=== PATIENT | male | born 1945 | race Caucasian/White ===

== ENCOUNTER → 2016-12-16 | Outpatient (CLI) | payer MEDICARE, BC ==
[~2016-12-16] MED LIST: AMBIEN 10MG10 MG PO; AMITRIPTYLINE H25 M1 PO; ASPIRIN 81M81 MG/TA2 PO; ASPIRIN E.C. 8181 MG PO; BETAPACE 80MG80 MG PO; BETAPACE AF160 MG PO; COLACE 100100 MG/CAP PO; COUMADIN 5MG5 MG/TAB PO; DOXYCYCLINE 10100 MG PO; ELAVIL100 MG PO; ELIQUIS 5MG PO; FERROUS SU325 MG/TAB PO; FOLIC ACID0.4 MG PO; GLUCOPHAGE1000 MG PO; LIPITOR 40MG TA40 MG PO; MYRBETR50MG PO; NORCO 325 MG-7.1 TAB PO; PAXIL 10MG10 MG PO; PAXIL 30MG30 MG PO; PREDNISONE20 MG PO; PRINIVIL10 MG PO; TRILIPIX45 MG PO; VITAMIN C500 MG PO; VITAMIN D 1001000 IU PO; ZESTRIL 5MG5 MG PO; ZOCOR 10MG10 MG PO
[2016-12-16 17:05] LABS: HIV 1/2 Antibodies Non-Reactive; HIV-1p24 Antigen Non-Reactive
== END ==
LOC: COL.LAB 15:33
PROVIDERS: Orthopaedic Surgery
DX: Z96.641 Presence of right artificial hip joint (principal)

== ENCOUNTER 2016-12-22 08:50 | Inpatient (IN) | payer MEDICARE, BC ==
[~2016-12-22] VITALS: Ht 180.3 cm; Wt 88.1 kg
[~2016-12-22 08:50] MED LIST changes: -ASPIRIN 81M81 MG/TA2 PO; -COUMADIN 5MG5 MG/TAB PO; -FERROUS SU325 MG/TAB PO; -FOLIC ACID0.4 MG PO; -LIPITOR 40MG TA40 MG PO; -VITAMIN C500 MG PO; -VITAMIN D 1001000 IU PO
[2016-12-22] MEDS ORDERED: ASPIRIN 81M81 MG/TA2 PO (10:59)
[2016-12-22] MEDS ORDERED: LIPITOR 40MG TA40 MG PO (10:59)
[2016-12-22] MEDS ORDERED: FOLIC ACID0.4 MG PO (11:00)
[2016-12-22] MEDS ORDERED: FERROUS SU325 MG/TAB PO (11:00)
[2016-12-22] MEDS ORDERED: VITAMIN D 1001000 IU PO (11:01)
[2016-12-22] MEDS ORDERED: ZESTRIL 5MG5 MG PO (11:01)
[2016-12-22] MEDS ORDERED: VITAMIN C500 MG PO (11:01)
[2016-12-22] MEDS ORDERED: COUMADIN 5MG5 MG/TAB PO (11:02)
[2016-12-23] VITALS (12 sets, daily range): BP systolic 121–147; BP diastolic 56–86; PULSE 46–79; TEMP 97.5–98.7
[2016-12-23 06:27] LABS: PROTHROMBIN TIME 11.5 SECONDS (9.7-12.8)
[2016-12-23] MEDS ORDERED: BETAPACE 80MG80 MG PO (16:35)
[2016-12-24 04:18] VITALS: BP 117/68; PULSE 71; TEMP 97.8
[2016-12-24 07:27] VITALS: BP 116/67; PULSE 64; TEMP 98.7
[2016-12-24 07:59] LABS: INR 1.1 (0.8-3.0); PROTHROMBIN TIME 12.1 SECONDS (9.7-12.8)
[2016-12-24 08:05] LABS: HEMATOCRIT 31.7 % (42.0-52.0); HEMOGLOBIN 10.3 g/dl (13.5-18.0)
[2016-12-24 11:21] VITALS: BP 98/43; PULSE 40; TEMP 99.1
[2016-12-24 16:43] VITALS: BP 111/54; PULSE 76; TEMP 98.8
[2016-12-24 20:25] VITALS: BP 134/60; PULSE 87; TEMP 100.5
[2016-12-24 22:27] VITALS: TEMP 99.9
[2016-12-25 05:29] VITALS: BP 111/59; PULSE 63; TEMP 98.2
[2016-12-25 06:35] LABS: INR 1.3 (0.8-3.0); PROTHROMBIN TIME 14.7 SECONDS (9.7-12.8)
[2016-12-25 06:46] LABS: HEMATOCRIT 31.4 % (42.0-52.0); HEMOGLOBIN 10.5 g/dl (13.5-18.0)
[2016-12-25 06:59] VITALS: BP 112/58; PULSE 64; TEMP 97.8
[2016-12-25 11:08] VITALS: BP 125/54; PULSE 73; TEMP 98.1
== END 2016-12-25 14:05 | disposition home or self-care (01) | DRG 470 ==
LOC: JCC 12-23 05:56
PROVIDERS: Nurse Anesthetist, Certified Registered; Orthopaedic Surgery
PROC: 0SR90JA Replacement of Right Hip Joint with Synthetic Substitute, Uncemented, Open Approach (ICD-10-PCS; principal; 2016-12-23 08:15)
DX: M16.11 Unilateral primary osteoarthritis, right hip (principal); I10 Essential (primary) hypertension; E11.9 Type 2 diabetes mellitus without complications
CPT/HCPCS: A4315; A9284; C1713; C1776; J0690; J2250; J2370; J2704; J3010; J7030

== ENCOUNTER → 2018-01-21 | Outpatient (CLI) | payer MEDICARE, BC ==
[~2018-01-21] MED LIST changes: +ASPIRIN 81M81 MG/TA2 PO; +BETAPACE AF80 MG/TA1 PO; +COUMADIN 2MG2 MG/TAB PO; +COUMADIN 5MG5 MG/TAB PO; +FERROUS SU325 MG/TAB PO; +FOLIC ACID0.4 MG PO; +LIPITOR 40MG TA40 MG PO; +OMNICEF 300MG300 MG PO; +PAXIL 20MG20 MG PO; +PRILOSEC 20MG20 MG PO; +PRINIVIL5 MG PO; +PYRIDIUM200 M1 PO; +VITAMIN C500 MG PO; +VITAMIN D 1001000 IU PO
[2018-01-21 08:56] LABS: INR 1.5 (0.8-3.0); PROTHROMBIN TIME 17.4 SECONDS (9.7-12.8)
== END ==
LOC: COL.LAB 08:25
PROVIDERS: Nurse Practitioner Family
DX: R52 Pain, unspecified (principal); Z79.01 Long term (current) use of anticoagulants

== ENCOUNTER → 2019-05-06 | Outpatient (CLI) | payer MEDICARE, BC | LOC: COL.RAD 07:35 | DX: R19.7 Diarrhea, unspecified (principal); N28.1 Cyst of kidney, acquired | CPT/HCPCS: Q9967 ==

== ENCOUNTER → 2022-03-26 | Outpatient (CLI) | payer MEDICARE, BC | LOC: COL.RAD 13:52 | DX: I67.82 Cerebral ischemia (principal); G30.9 Alzheimer's disease, unspecified; F02.80 Dementia in other diseases classified elsewhere, unspecified severity, without behavioral disturbance, psychotic disturbance, mood disturbance, and anxiety ==

== ENCOUNTER 2023-04-20 15:26 | Inpatient (IN) | payer MEDICARE, BC ==
[~2023-04-20] VITALS: Ht 182.9 cm; Wt 99.0 kg
[~2023-04-20 15:26] MED LIST changes: +ADALAT CC30 MG PO; +ARICEPT10 MG PO; -BETAPACE AF80 MG/TA1 PO; +CLARITIN 1010 MG/TAB PO; +COMPLETE MULTI1 TAB PO; -COUMADIN 2MG2 MG/TAB PO; +FOLIC ACID 11 MG/TA1 PO; +GLUCOPHAGE500 MG/TAB PO; +IMODIUM 2MG CAPS2 MG PO; +NAMENDA 10MG TA10 MG PO; +NATURAL E400 IU PO; +NATURAL IRON65 MG PO; +PRINIVIL40 MG PO; +QUESTRAN4 GM/9 GM PO; +VITAMIND3 5000 PO
[2023-04-20 16:07] VITALS: BP 112/56; PULSE 81; TEMP 98.4
--- NOTE | 2023-04-20 16:40 | NUR ---
PT ADMITTED TO ROOM [address] VIERA IN TO SEE PT, HOSPITALIST IN TO ADMIT PT THIS PM. SEE COMPUTER FOR ORDERS.ASSESSMENTS COMPLETE.
[2023-04-20 16:44] LABS: BASO % 0.2 % (0.0-2.0); EOS % 0.3 % (0.0-4.0); GRAN # 9.6 K/mm3 (1.4-6.5); GRAN % 77.5 % (42.2-75.2); HEMOGLOBIN 12.3 g/dl (13.5-18.0); LYMPH # 1.5 K/mm3 (1.2-3.4); LYMPH % 12.2 % (20.0-51.0); MEAN CELL VOLUME 92 fl (80.0-100.0); MEAN CORPUSCULAR HEMOGLOBIN 31 pg (27-31); MEAN CORPUSCULAR HGB CONC 34 g/dl (33.0-37.0); MEAN PLATELET VOLUME 10.5 fl (7.4-10.4); MONO # 1.2 K/mm3 (0.1-0.6); MONO % 9.4 % (1.7-9.3); PLATELET COUNT 239 K/mm3 (130-400); RED BLOOD COUNT 3.92 M/mm3 (4.20-5.60); REDCELL DISTRIBUTION WIDTH-CV 13.2 % (11.5-14.5)
[2023-04-20 16:46] LABS: HEMATOCRIT 36.2 % (42.0-52.0)
[2023-04-20 16:46] LABS: INR 2.6 (0.8-3.0); PROTHROMBIN TIME 27.3 SECONDS (9.7-12.8)
[2023-04-20 16:57] LABS: ALBUMIN 3.5 gm/dL (3.4-4.8); BILIRUBIN,TOTAL 0.9 mg/dL (0.2-1.2); CREATININE, serum 1.07 mg/dL (0.72-1.25); MAGNESIUM 1.7 mg/dL (1.6-2.6); POTASSIUM 4.2 mmol/L (3.5-4.5); TOTAL PROTEIN 6.6 gm/dL (6.2-8.1)
[2023-04-20 17:00] VITALS: BP_SYST 112
[2023-04-20 19:38] VITALS: BP 148/66; PULSE 81; TEMP 98.3
--- NOTE | 2023-04-20 20:00 | NUR ---
PT REPORTS HEADACHE AND RLQ PAIN. MEDICATED WITH HS MEDS INCLUDING TYLENOL FOR HEADACHE AND MORPHINE FOR ABD PAIN. PT IS ALERT AND ORIENTED X4. HAS IVF TO RFA INFUSING WITHOUT PROBLEM. ASSISTED TO BATHROOM WITH ONE ASSIST, VOIDS AND BACK TO BED. BED ALARM ON FOR SAFETY.
[2023-04-20 20:24] VITALS: BP_SYST 148
[2023-04-21] VITALS (12 sets, daily range): BP systolic 121–157; BP diastolic 63–81; PULSE 64–84; TEMP 98.1–99
--- NOTE | 2023-04-21 04:52 | NUR ---
PT AWAKE, ASKING FOR PAIN MEDS FOR RLQ PAIN. MORPHINE 2MG IVP GIVEN AT THIS TIME.
[2023-04-21 07:15] LABS: BASO % 0.3 % (0.0-2.0); EOS # 0.1 K/mm3 (0.0-0.7); EOS % 1.3 % (0.0-4.0); GRAN # 7.2 K/mm3 (1.4-6.5); GRAN % 71.6 % (42.2-75.2); HEMOGLOBIN 11.1 g/dl (13.5-18.0); LYMPH # 1.5 K/mm3 (1.2-3.4); LYMPH % 15.2 % (20.0-51.0); MEAN CELL VOLUME 94 fl (80.0-100.0); MEAN CORPUSCULAR HEMOGLOBIN 31 pg (27-31); MEAN CORPUSCULAR HGB CONC 33 g/dl (33.0-37.0); MEAN PLATELET VOLUME 10.5 fl (7.4-10.4); MONO # 1.1 K/mm3 (0.1-0.6); MONO % 11.1 % (1.7-9.3); PLATELET COUNT 247 K/mm3 (130-400); RED BLOOD COUNT 3.59 M/mm3 (4.20-5.60); REDCELL DISTRIBUTION WIDTH-CV 13.3 % (11.5-14.5)
[2023-04-21 07:16] LABS: INR 2.5 (0.8-3.0); PROTHROMBIN TIME 26.2 SECONDS (9.7-12.8)
[2023-04-21 07:18] LABS: HEMATOCRIT 33.7 % (42.0-52.0)
[2023-04-21 07:27] LABS: CALCIUM 8.5 mg/dL (8.4-10.2); CREATININE, serum 0.79 mg/dL (0.72-1.25); MAGNESIUM 1.7 mg/dL (1.6-2.6); POTASSIUM 3.6 mmol/L (3.5-4.5)
--- NOTE | 2023-04-21 08:23 | NUR ---
PT LAYING IN BED, ALERT AND ORIENTEDX4. PT SAYS HE DOESN'T HAVE ANY PAIN WHEN HE DOESNT MOVE BUT WHEN HE PUSHES ON THE RIGH SIDE HIS PAIN IS 10/10. GAVE MORNING MEDS. CALL LIGHT WITHIN REACH.
[2023-04-21] MEDS ORDERED: COUMADIN 5MG5 MG/TAB PO (08:25)
--- NOTE | 2023-04-21 10:06 | NUR ---
Triage Licensed Practical Nurse met with Patient at bedside to conduct Care Managment Assessment and discuss discharge planning. Patient lives with his in [place], [place] and is established with PCP Dr. Ling. Patient is covered by [facility] for insurance. PAtient requests discharge medications be sent to [facility]. Patient denies the use of DME prior to admission and endorses independent ADL/IADLs. Patient reports that he has a DPOAHC but cannot recall who he has appointed as his agent. DPOA is not on file. Patient is anticipated to discharge home pending medical and PT recommendations.
--- NOTE | 2023-04-21 10:27 | NUR ---
Initial visit attempt; Nurse with patient, Payment Poster left card informing patient of the availability of Payment Poster Services and offering God's blessings.
--- NOTE | 2023-04-21 20:13 | NUR ---
PT ASKING FOR SLEEPING MEDS. LEMUEL MOON ORDERS MELATONIN. PT GIVEN SCHEDULED HS MEDS INCLUDING MORPHINE 2MG IVP FOR RLQ PAIN AND MELATONIN 9MG FOR SLEEP. REPORTS HEADACHE, TYLENOL 650MG PO GIVEN. ASSISTED TO BATHROOM, VOIDS AND BACK TO BED. PLACED BED ALARM FOR SAFETY. IVF TO RFA INFUSING WITHOUT PROBLEM.
--- NOTE | 2023-04-21 22:30 | NUR ---
PT SOFTLY SNORING WITH EYES CLOSED.
[2023-04-22] VITALS (13 sets, daily range): BP systolic 124–161; BP diastolic 66–79; PULSE 64–73; TEMP 97.5–98.7
--- NOTE | 2023-04-22 04:20 | NUR ---
PT UP TO BATHROOM, REPORTS PAIN TO RLQ IS MINIMAL AND DENIES NEED FOR PAIN MEDS AT THIS TIME. IVF AND IV ANTIBIOTICS INFUSING WITHOUT PROBLEM.
--- NOTE | 2023-04-22 06:00 | NUR ---
WASN'T ABLE TO TOLERATE SCDS FOR VERY LONG, REMOVED AT THIS TIME.
[2023-04-22 07:20] LABS: BASO % 0.3 % (0.0-2.0); EOS # 0.2 K/mm3 (0.0-0.7); EOS % 2.9 % (0.0-4.0); GRAN # 4.7 K/mm3 (1.4-6.5); GRAN % 67.4 % (42.2-75.2); HEMATOCRIT 34.8 % (42.0-52.0); HEMOGLOBIN 11.4 g/dl (13.5-18.0); LYMPH # 1.1 K/mm3 (1.2-3.4); LYMPH % 16.3 % (20.0-51.0); MEAN CELL VOLUME 96 fl (80.0-100.0); MEAN CORPUSCULAR HEMOGLOBIN 32 pg (27-31); MEAN CORPUSCULAR HGB CONC 33 g/dl (33.0-37.0); MEAN PLATELET VOLUME 10.5 fl (7.4-10.4); MONO # 0.9 K/mm3 (0.1-0.6); MONO % 12.7 % (1.7-9.3); PLATELET COUNT 277 K/mm3 (130-400); RED BLOOD COUNT 3.61 M/mm3 (4.20-5.60); REDCELL DISTRIBUTION WIDTH-CV 13.2 % (11.5-14.5)
[2023-04-22 07:41] LABS: CALCIUM 8.4 mg/dL (8.4-10.2); CREATININE, serum 0.73 mg/dL (0.72-1.25); POTASSIUM 3.8 mmol/L (3.5-4.5)
[2023-04-22 07:53] LABS: INR 1.6 (0.8-3.0); PROTHROMBIN TIME 17.8 SECONDS (9.7-12.8)
--- NOTE | 2023-04-22 08:19 | NUR ---
Pt. sitting up in bed. Pt. is A&OX3, assessment complete. IV to rt. forearm patent. Pt. denies pain or other needs, call light within reach.
[2023-04-23 01:00] VITALS: BP_SYST 157
[2023-04-23 03:31] VITALS: BP 144/73; PULSE 72; TEMP 97.9
[2023-04-23 04:25] VITALS: BP_SYST 144
--- NOTE | 2023-04-23 05:45 | NUR ---
Patient had an uneventful night. Denied pain/nausea/shortness of breath. VS stable. Tolerating PO. Has been up in room. States he feels a lot better and hopes he can go home today. Denies current needs. Call light in reach. Will monitor.
[2023-04-23 06:39] LABS: BASO % 0.5 % (0.0-2.0); EOS # 0.3 K/mm3 (0.0-0.7); EOS % 3.6 % (0.0-4.0); GRAN # 4.3 K/mm3 (1.4-6.5); GRAN % 56.1 % (42.2-75.2); HEMATOCRIT 37.6 % (42.0-52.0); HEMOGLOBIN 12.4 g/dl (13.5-18.0); LYMPH # 2.1 K/mm3 (1.2-3.4); LYMPH % 27.9 % (20.0-51.0); MEAN CELL VOLUME 94 fl (80.0-100.0); MEAN CORPUSCULAR HEMOGLOBIN 31 pg (27-31); MEAN CORPUSCULAR HGB CONC 33 g/dl (33.0-37.0); MEAN PLATELET VOLUME 10.2 fl (7.4-10.4); MONO # 0.9 K/mm3 (0.1-0.6); MONO % 11.4 % (1.7-9.3); PLATELET COUNT 329 K/mm3 (130-400); RED BLOOD COUNT 3.99 M/mm3 (4.20-5.60)
--- NOTE | 2023-04-23 06:48 | NUR ---
Shift report received from the night nurse, VIRI Lowry.
[2023-04-23 06:55] LABS: CALCIUM 9.3 mg/dL (8.4-10.2); CREATININE, serum 0.83 mg/dL (0.72-1.25)
--- NOTE | 2023-04-23 07:36 | NUR ---
Patient awake in bed , alert and oriented. Patient states he doing better and no pain at RLQ. Patient denies n/v, chills and shortness of breath. INT on right hand hand intact, no redness or swelling noted at site. Patient moves all extremities with no pain. Patient has no concern at this time.
[2023-04-23 08:03] VITALS: BP 154/70; PULSE 65; TEMP 98.7
[2023-04-23 09:00] VITALS: BP_SYST 154
[2023-04-23] MEDS ORDERED: AMOXICILLIN 8751 TAB PO (09:02)
--- NOTE | 2023-04-23 09:18 | NUR ---
Office Helper Clerical collaborated with treatment team to assess PAtient for discharge readiness. Patient is assessed to be ready for discharge home today. SW discussed option of HH with Patient and . Patient declines HH referral at this time. SW discussed OP PT, Patient declines stating that he has a program to do at home that OP PT provided him in the past. Office Helper Clerical conducted Medicare IM brief and reviewed discharge plan to return home with . Patient acknowledged brief and signs form. Original placed in chart, copy provided to Patient.
--- NOTE | 2023-04-23 10:54 | NUR ---
INT discontinued on right arm, no signs of redness or inflamation. Discharge instruction given to patient and spouse, and spouse has no other questions. Patient's spouse assisted in dressing. Patient escorted to the patient entrance area via wheelchair accompanied by spouse. Patient left the unit at 1055. All belongings given to spouse.
== END 2023-04-23 10:50 | disposition home or self-care (01) | DRG 394 ==
LOC: SURG 15:26
PROVIDERS: Physician Assistant; ADMIT Internal Medicine
DX: K37 Unspecified appendicitis (principal); I42.9 Cardiomyopathy, unspecified; E83.42 Hypomagnesemia; I10 Essential (primary) hypertension; E78.5 Hyperlipidemia, unspecified; I48.91 Unspecified atrial fibrillation; E11.9 Type 2 diabetes mellitus without complications; Z79.84 Long term (current) use of oral hypoglycemic drugs; G47.00 Insomnia, unspecified; F41.9 Anxiety disorder, unspecified; F32.A Depression, unspecified; F03.90 Unspecified dementia, unspecified severity, without behavioral disturbance, psychotic disturbance, mood disturbance, and anxiety; C61 Malignant neoplasm of prostate
CPT/HCPCS: J1815; J2270; J2543; J3475; J7030

== ENCOUNTER 2023-12-14 11:58 | Inpatient (IN) | payer MEDICARE, BC ==
[~2023-12-14] VITALS: Ht 182.9 cm; Wt 99.0 kg
[~2023-12-14 11:58] MED LIST changes: +AMOXICILLIN 8751 TAB PO; +CEPHALEXIN500 M1 PO
[2023-12-14 12:48] LABS: COLLECTION METHOD CLEAN CATCH
[2023-12-14 12:57] LABS: PH 5.5 (5.0-8.5); URINE APPEARANCE CLEAR (CLEAR/HAZY); URINE BLOOD NEGATIVE (NEGATIVE); URINE COLOR YELLOW (YELLOW); URINE GLUCOSE 3+ (NEGATIVE); URINE KETONE NEGATIVE (NEGATIVE); URINE NITRATE NEGATIVE (NEGATIVE); URINE PROTEIN(semi-quant) TRACE (NEGATIVE); URINE UROBILINOGEN 0.2 E.U/dL (0.2-1.0)
[2023-12-14] MEDS ORDERED: BENICAR 20MG TA20 MG PO (14:34)
[2023-12-14 14:45] LABS: BASO # 0.1 K/mm3 (0.0-0.2); BASO % 0.7 % (0.0-2.0); EOS # 0.1 K/mm3 (0.0-0.7); EOS % 1.6 % (0.0-4.0); GRAN # 3.6 K/mm3 (1.4-6.5); GRAN % 53.9 % (42.2-75.2); HEMATOCRIT 42.5 % (42.0-52.0); HEMOGLOBIN 13.8 g/dl (13.5-18.0); LYMPH # 2.3 K/mm3 (1.2-3.4); LYMPH % 34.1 % (20.0-51.0); MEAN CELL VOLUME 96 fl (80.0-100.0); MEAN CORPUSCULAR HEMOGLOBIN 31 pg (27-31); MEAN CORPUSCULAR HGB CONC 33 g/dl (33.0-37.0); MEAN PLATELET VOLUME 9.9 fl (7.4-10.4); MONO # 0.6 K/mm3 (0.1-0.6); MONO % 9.3 % (1.7-9.3); PLATELET COUNT 323 K/mm3 (130-400); RED BLOOD COUNT 4.41 M/mm3 (4.20-5.60); REDCELL DISTRIBUTION WIDTH-CV 13.3 % (11.5-14.5)
[2023-12-14] MEDS ORDERED: NS 1,000 ML IV ONE (14:45)
[2023-12-14] MEDS ORDERED: Ondansetron 4 MG/2 ML VIAL IV ONE (14:45)
[2023-12-14] MEDS ORDERED: Morphine 4 MG/ML VIAL IV ONE (14:45)
[2023-12-14 14:56] LABS: INR 3.2 (0.8-3.0); PARTIAL THROMBOPLASTIN TIME 45.8 SECONDS (26.0-37.0); PROTHROMBIN TIME 34.3 SECONDS (9.7-12.8)
[2023-12-14 15:07] LABS: ALBUMIN 3.6 g/dL (3.4-4.8); BILIRUBIN,TOTAL 0.5 mg/dL (0.2-1.2); C-REACTIVE PROTEIN 3.8 mg/dL (0.00-0.50); CALCIUM 9.6 mg/dL (8.4-10.2); CREATININE, serum 0.86 mg/dL (0.72-1.25); POTASSIUM 4.3 mEq/L (3.5-4.5); TOTAL PROTEIN 7.1 g/dl (6.2-8.1)
[2023-12-14] MEDS ORDERED: JARDIANCE10 PO (15:37)
[2023-12-14] MEDS ORDERED: GLUCOPHAGE XR750 MG PO (15:38)
[2023-12-14] MEDS ORDERED: DESYREL 50MG50 MG PO (15:40)
[2023-12-14] MEDS ORDERED: Morphine 4 MG/ML VIAL IV PRN (17:00)
[2023-12-14] MEDS ORDERED: Ondansetron 4 MG/2 ML VIAL IV PRN (17:00)
[2023-12-14] MEDS ORDERED: 1/2 NS 1,000 ML IV SCH (17:15)
[2023-12-14] MEDS ORDERED: Phytonadione (Vitamin K) 5 MG/5 ML Oral Susp PO ONE (17:15)
[2023-12-14] MEDS ORDERED: Insulin Lispro (HumaLOG) SQ SCH (21:00)
[2023-12-14] MEDS ORDERED: PARoxetine HCL 10 MG TABLET PO SCH (21:00)
[2023-12-14] MEDS ORDERED: Memantine 10 MG TAB PO SCH (21:00)
[2023-12-14] MEDS ORDERED: Donepezil 5 MG TAB PO SCH (21:00)
[2023-12-14] MEDS ORDERED: Zolpidem 10 MG TAB PO SCH (21:00)
--- NOTE | 2023-12-14 21:25 | NUR ---
Pt. arrived to the floor via stretcher. Pt. able to stand and turn to the bed with standby assist. Pt. is A&OX3, assessment complete. Pt. does report being forgetful. IV to rt. ac patent, IV fluids infusing per orders. Pt. denies pain at this time. Call light within reach.
[2023-12-14 21:32] VITALS: BP_SYST 146
[2023-12-14] MEDS ORDERED: Acetaminophen 325 MG TAB PO ONE (22:00)
[2023-12-15] VITALS (12 sets, daily range): BP systolic 125–169; BP diastolic 63–72; PULSE 42–53; TEMP 97.8–98.5
[2023-12-15] MEDS ORDERED: Acetaminophen 325 MG TAB PO PRN (05:30)
[2023-12-15 06:39] LABS: BASO % 0.6 % (0.0-2.0); EOS # 0.1 K/mm3 (0.0-0.7); EOS % 2.5 % (0.0-4.0); GRAN # 2.2 K/mm3 (1.4-6.5); GRAN % 42.8 % (42.2-75.2); HEMOGLOBIN 12.3 g/dl (13.5-18.0); LYMPH # 2.3 K/mm3 (1.2-3.4); LYMPH % 43.8 % (20.0-51.0); MEAN CELL VOLUME 94 fl (80.0-100.0); MEAN CORPUSCULAR HEMOGLOBIN 32 pg (27-31); MEAN CORPUSCULAR HGB CONC 35 g/dl (33.0-37.0); MEAN PLATELET VOLUME 10.2 fl (7.4-10.4); MONO # 0.5 K/mm3 (0.1-0.6); MONO % 10.1 % (1.7-9.3); PLATELET COUNT 298 K/mm3 (130-400); RED BLOOD COUNT 3.81 M/mm3 (4.20-5.60); REDCELL DISTRIBUTION WIDTH-CV 13.3 % (11.5-14.5)
[2023-12-15 06:42] LABS: HEMATOCRIT 35.7 % (42.0-52.0)
[2023-12-15 07:03] LABS: CALCIUM 8.9 mg/dL (8.4-10.2); CREATININE, serum 0.79 mg/dL (0.72-1.25); POTASSIUM 3.8 mEq/L (3.5-4.5)
[2023-12-15 07:05] LABS: INR 2.4 (0.8-3.0); PROTHROMBIN TIME 25.9 SECONDS (9.7-12.8)
[2023-12-15 07:52] LABS: MAGNESIUM 1.9 mg/dL (1.6-2.6)
[2023-12-15] MEDS ORDERED: Dextrose 50% Water 25 GM/50 ML SYRINGE IV PRN (08:00)
[2023-12-15] MEDS ORDERED: Glucagon 1 MG VIAL IM PRN (08:00)
[2023-12-15] MEDS ORDERED: Dextrose (Glucose) 15 GM (4 x 3.75 GM) Chewable TABLET PACK PO PRN (08:00)
[2023-12-15] MEDS ORDERED: Olmesartan 40 MG **** subs to Losartan 100 MG PO SCH (09:00)
[2023-12-15] MEDS ORDERED: Loratadine 10 MG TAB PO SCH (09:00)
[2023-12-15] MEDS ORDERED: Atorvastatin 40 MG TAB PO SCH (09:00)
[2023-12-15] MEDS ORDERED: Losartan 50 MG TAB PO SCH (09:00)
--- NOTE | 2023-12-15 09:00 | NUR ---
Pt doing well this morning, states he is not having much pain. Pt is very forgetful. He is oriented to self and is aware of where he is and why he is here. Pt continues to ask if he can have something to eat/drink. Have to keep reminding him that he cannot until we know if he is having surgery or not. Pt initially stated that he doesn't have balance issues and does not use a cane/walker at home. Pts arrived and stated that he does fall at home. Pt made a high fall risk and placed all appropriate interventions in place.
--- NOTE | 2023-12-15 09:19 | NUR ---
D: Initial visit: Manager Photo stopped by room on rounds. A: Pt was resting and content sitting in his chair. Pt has no needs right now. Pt appreciated the visit. P: Manager Photo informed pt that if he needed anything from the camera mechanic area to let his nurse know. Manager Photo will follow up as needed.
--- NOTE | 2023-12-15 10:58 | NUR ---
No plan for surgery today. Educated pt on room service and did order him something to eat
--- NOTE | 2023-12-15 12:34 | NUR ---
Pt continues to have no complaints of pain. Pt sitting up in the chair. Pt has to be reminded of things often and needs guidance with using a walker. Bed/chair alarm in use, call light within reach
--- NOTE | 2023-12-15 15:25 | NUR ---
lunchroom worker met with patient to discuss discharge planning. Patient lives in [place] with his , Rahel, P# [phone]. PCP is Elizabeth, pharmacy is [facility]. No issues affording medications. Patient reports his DPOA-HC is his , Rahel. DME is cane but patient normally does not use it. Patient reports to be independent with ADLS and able to transport himself to and from appointments. Patient would like to return home at time of discharge. Discharge plan: Home
[2023-12-15] MEDS ORDERED: Phytonadione (Vitamin K) 5 MG/5 ML Oral Susp PO ONE (15:30)
--- NOTE | 2023-12-15 21:06 | NUR ---
THE PATIENT IS ON TELE WITH A [employer] WITH A [employer], [employer] AND PVCs. THE PATIENT TAKES BETAPACE. THE PTS HEART RATE HAS BEEN IN THE UPPER 30s TO LOW 40s. JEOVANY DESHPANDE NOTIFIED AND OKAY TO HOLD THIS EVENINGS DOSE OF BETAPACE.
[2023-12-16 01:00] VITALS: BP_SYST 134
--- NOTE | 2023-12-16 01:47 | NUR ---
NURSING SHIFT ASSESSMENT COMPLETED. THE PATIENT WAS ALERT AND ORIENTED, BUT FORGETFUL. PER THE PTS SPOUSE HE HAS BEEN FALLING A LOT AT HOME. THE BED ALARM IS ON. THE PATIENT IS VERY PLEASANT. THE PATIENT DENIED PAIN OR DISCOMFORT. THE PATIENT WAS REMINDED TO USE THE CALL LIGHT BEFORE TRYING TO GET OUT OF BED. NPO AT MIDNIGHT STATUS REVIEWED. THE PATIENT VERBALIZED UNDERSTANDING. CALL LIGHT AND PERSONAL BELONGINGS WITHIN REACH. THE BED IS IN THE LOW POSITION.
[2023-12-16 03:27] VITALS: BP 163/85; PULSE 44; TEMP 98.1
[2023-12-16 07:05] LABS: INR 1.5 (0.8-3.0); PROTHROMBIN TIME 16.1 SECONDS (9.7-12.8)
[2023-12-16 07:17] LABS: CALCIUM 8.6 mg/dL (8.4-10.2); CREATININE, serum 0.78 mg/dL (0.72-1.25); POTASSIUM 3.6 mEq/L (3.5-4.5)
[2023-12-16 07:21] LABS: BASO % 0.7 % (0.0-2.0); EOS # 0.1 K/mm3 (0.0-0.7); EOS % 1.9 % (0.0-4.0); GRAN # 2.6 K/mm3 (1.4-6.5); GRAN % 43.8 % (42.2-75.2); HEMATOCRIT 37.5 % (42.0-52.0); HEMOGLOBIN 12.6 g/dl (13.5-18.0); LYMPH # 2.5 K/mm3 (1.2-3.4); LYMPH % 43.3 % (20.0-51.0); MEAN CELL VOLUME 93 fl (80.0-100.0); MEAN CORPUSCULAR HEMOGLOBIN 31 pg (27-31); MEAN CORPUSCULAR HGB CONC 34 g/dl (33.0-37.0); MONO # 0.6 K/mm3 (0.1-0.6); PLATELET COUNT 288 K/mm3 (130-400); RED BLOOD COUNT 4.03 M/mm3 (4.20-5.60)
[2023-12-16] MEDS ORDERED: fentaNYL 50 MCG/ML 2 ML VIAL IV ONE (12:10)
[2023-12-16] MEDS ORDERED: Rocuronium 50 MG/5 ML Multi-Dose VIAL IV ONE (12:10)
[2023-12-16] MEDS ORDERED: Lidocaine PF 2% (20 MG/ML) 5 ML VIAL IV ONE (12:10)
[2023-12-16] MEDS ORDERED: Glycopyrrolate 0.2 MG/ML 1 ML VIAL IV ONE (12:10)
[2023-12-16] MEDS ORDERED: Ondansetron 4 MG/2 ML VIAL IV ONE (12:10)
--- NOTE | 2023-12-17 12:55 | NUR ---
report received from Codi MEREDITH. pt denies pain and needs at this time. call light in reach.
[2023-12-17] MEDS ORDERED: LOVENOX 100100 MG/ML SQ (14:04)
--- NOTE | 2023-12-17 15:24 | NUR ---
INT discontinued. discharge instructions given to pt and , all questions answered. pt instructions unable to print. paper EMAR printed and faxed to pharmacy.
[2023-12-17] MEDS ORDERED: Warfarin 5 MG TAB PO SCH (21:00)
== END 2023-12-17 15:35 | disposition home or self-care (01) | DRG 398 ==
LOC: COL.ER 11:58 → SURG 16:12
PROVIDERS: Emergency Medicine; Physician Assistant; Surgery; ADMIT Internal Medicine
PROC: 0DTJ4ZZ Resection of Appendix, Percutaneous Endoscopic Approach (ICD-10-PCS; principal; 2023-12-16 16:00)
DX: K36 Other appendicitis (principal); E87.20 Acidosis, unspecified; F02.83 Dementia in other diseases classified elsewhere, unspecified severity, with mood disturbance; F02.84 Dementia in other diseases classified elsewhere, unspecified severity, with anxiety; I42.9 Cardiomyopathy, unspecified; G30.9 Alzheimer's disease, unspecified; I10 Essential (primary) hypertension; E78.5 Hyperlipidemia, unspecified; G47.00 Insomnia, unspecified; E66.9 Obesity, unspecified; N28.1 Cyst of kidney, acquired; E11.9 Type 2 diabetes mellitus without complications; H26.9 Unspecified cataract; Z96.641 Presence of right artificial hip joint; Z90.89 Acquired absence of other organs; Z90.79 Acquired absence of other genital organ(s); Z79.899 Other long term (current) drug therapy; Z79.01 Long term (current) use of anticoagulants; Z79.84 Long term (current) use of oral hypoglycemic drugs; Z88.8 Allergy status to other drugs, medicaments and biological substances; Z91.040 Latex allergy status; Z85.46 Personal history of malignant neoplasm of prostate; Z79.82 Long term (current) use of aspirin; Z85.828 Personal history of other malignant neoplasm of skin; Z23 Encounter for immunization; Z68.29 Body mass index [BMI] 29.0-29.9, adult
CPT/HCPCS: J1650; J2270; J2405; J2543; J2704; J3010; J7030

== ENCOUNTER 2024-02-16 09:56 | Emergency (ER) | payer MEDICARE, BC ==
[~2024-02-16] VITALS: Ht 182.9 cm; Wt 102.7 kg
[~2024-02-16 09:56] MED LIST changes: +BENICAR 20MG TA20 MG PO; +DESYREL 50MG50 MG PO; +GLUCOPHAGE XR750 MG PO; +JARDIANCE10 PO; +LOVENOX 100100 MG/ML SQ
[2024-02-16 10:02] VITALS: TEMP 97.5
[2024-02-16] MEDS ORDERED: NORCO 325 MG-51 TAB PO (11:16)
[2024-02-16 11:46] VITALS: BP 150/77; PULSE 50
== END 2024-02-16 11:55 | disposition home or self-care (01) ==
LOC: COL.ER 09:56
DX: S22.41XA Multiple fractures of ribs, right side, initial encounter for closed fracture (principal); I48.91 Unspecified atrial fibrillation; Z91.040 Latex allergy status; Z79.01 Long term (current) use of anticoagulants; W01.0XXA Fall on same level from slipping, tripping and stumbling without subsequent striking against object, initial encounter; Y93.01 Activity, walking, marching and hiking